=== PATIENT | male | born 1985 | race Hispanic/Latino ===

== ENCOUNTER 2017-11-03 15:50 | Emergency (ER) | payer OTHER ==
[2017-11-03] MEDS: ADACEL/BOOSTRIX VACCINE (DIPHTH/PERTUSS/ACELL/TETANUS)0.5ML SYR (90715) IM ×2 (16:36)
[2017-11-03] MEDS: IBUPROFEN 600 MG TAB PO ×2 (16:37)
== END 2017-11-03 16:53 | disposition home or self-care (01) ==
LOC: M ED 15:50
DX: S60.021A Contusion of right index finger without damage to nail, initial encounter (principal); W30.89XA Contact with other specified agricultural machinery, initial encounter; Y92.79 Other farm location as the place of occurrence of the external cause; Y93.89 Activity, other specified; Y99.0 Civilian activity done for income or pay
CPT/HCPCS: 90715